=== PATIENT | female | born 1955 | race Native Hawaiian/Other Pacific Islander ===

== ENCOUNTER 2016-08-11 07:58 | Day surgery (SDC) | payer OTHER ==
[~2016-08-11] VITALS: Ht 152.4 cm; Wt 68.0 kg
== END 2016-08-11 12:37 | disposition home or self-care (01) ==
LOC: OR 07:58
PROC: 0DBK8ZZ Excision of Ascending Colon, Via Natural or Artificial Opening Endoscopic (ICD-10-PCS; principal; 2016-08-11)
DX: D12.2 Benign neoplasm of ascending colon (principal); K57.30 Diverticulosis of large intestine without perforation or abscess without bleeding; Z12.11 Encounter for screening for malignant neoplasm of colon; Z86.010 Personal history of colon polyps; R19.4 Change in bowel habit
CPT/HCPCS: J2704

== ENCOUNTER 2017-01-05 10:29 | Outpatient (CLI) | payer OTHER | END 2017-01-05 11:30 | disposition home or self-care (01) | LOC: MRI 10:29 | DX: M54.12 Radiculopathy, cervical region (principal) ==

== ENCOUNTER 2017-05-18 08:42 | Outpatient (CLI) | payer OTHER | END 2017-05-18 16:00 | disposition home or self-care (01) | LOC: NM 08:42 | DX: R11.0 Nausea (principal) ==

== ENCOUNTER 2017-10-13 09:57 | Outpatient (CLI) | payer OTHER | END 2017-10-13 23:59 | disposition home or self-care (01) | LOC: MAMMO 09:57 | DX: Z12.31 Encounter for screening mammogram for malignant neoplasm of breast (principal) ==

== ENCOUNTER 2017-11-11 10:32 | Outpatient (CLI) | payer OTHER | END 2017-11-11 19:45 | disposition home or self-care (01) | LOC: MAMMO 10:32 | DX: R92.8 Other abnormal and inconclusive findings on diagnostic imaging of breast (principal) ==

== ENCOUNTER 2018-01-05 13:02 | Outpatient (CLI) | payer OTHER | END 2018-01-05 20:33 | disposition home or self-care (01) | LOC: MRI 13:02 | DX: M54.12 Radiculopathy, cervical region (principal) ==

== ENCOUNTER 2018-06-15 09:57 | Day surgery (SDC) | payer OTHER ==
[2018-06-15 10:55] LABS: PLATELET COUNT 216 K/uL (152-353)
[2018-06-15 10:59] LABS: POTASSIUM 4.2 mmol/L (3.6-5.2)
== END 2018-06-15 17:06 | disposition home or self-care (01) ==
LOC: OR 09:57
PROVIDERS: Internal Medicine Gastroenterology
PROC: 0DB68ZZ Excision of Stomach, Via Natural or Artificial Opening Endoscopic (ICD-10-PCS; principal; 2018-06-15)
DX: K29.50 Unspecified chronic gastritis without bleeding (principal); K25.9 Gastric ulcer, unspecified as acute or chronic, without hemorrhage or perforation; K31.7 Polyp of stomach and duodenum; K21.0 Gastro-esophageal reflux disease with esophagitis; R10.11 Right upper quadrant pain; R11.0 Nausea
CPT/HCPCS: 80053; 85027; J2001; J2405; J2704

== ENCOUNTER 2018-12-19 10:48 | Outpatient (CLI) | payer OTHER | END 2018-12-19 19:57 | disposition home or self-care (01) | LOC: RAD 10:48 → MAMMO 11:00 → RAD 19:57 | DX: R93.7 Abnormal findings on diagnostic imaging of other parts of musculoskeletal system (principal); Z12.31 Encounter for screening mammogram for malignant neoplasm of breast; N95.8 Other specified menopausal and perimenopausal disorders ==

== ENCOUNTER 2019-02-08 09:00 | Outpatient (CLI) | payer OTHER | END 2019-02-08 21:51 | disposition home or self-care (01) | LOC: RAD 09:00 | DX: Z01.818 Encounter for other preprocedural examination (principal) ==

== ENCOUNTER 2019-08-23 12:55 | Outpatient (CLI) | payer OTHER | END 2019-08-23 19:50 | disposition home or self-care (01) | LOC: RAD 12:55 | DX: M25.511 Pain in right shoulder (principal) ==

== ENCOUNTER 2019-08-24 10:50 | Outpatient (CLI) | payer OTHER | END 2019-08-24 21:37 | disposition home or self-care (01) | LOC: CT 10:50 | DX: L02.211 Cutaneous abscess of abdominal wall (principal) | CPT/HCPCS: 36415; 82565; 84520; Q9963 ==

== ENCOUNTER 2019-09-26 09:05 | Outpatient (CLI) | payer OTHER | END 2019-09-26 21:22 | disposition home or self-care (01) | LOC: LABW 09:05 | DX: K76.0 Fatty (change of) liver, not elsewhere classified (principal) | CPT/HCPCS: 36415; 82172; 82247; 82977; 83010; 83883; 84460 ==

== ENCOUNTER 2019-10-25 12:50 | Day surgery (SDC) | payer OTHER ==
[2019-10-23 11:17] LABS: PLATELET COUNT 246 K/uL (152-353)
[2019-10-23 11:28] LABS: POTASSIUM 4.7 mmol/L (3.6-5.2)
[~2019-10-25] VITALS: Ht 30.5 cm; Wt 0.5 kg
== END 2019-10-25 16:05 | disposition home or self-care (01) ==
LOC: OR 12:50
PROVIDERS: Internal Medicine Gastroenterology
PROC: 0DJD8ZZ Inspection of Lower Intestinal Tract, Via Natural or Artificial Opening Endoscopic (ICD-10-PCS; principal; 2019-10-25)
DX: K57.30 Diverticulosis of large intestine without perforation or abscess without bleeding (principal); K64.8 Other hemorrhoids; Z86.010 Personal history of colon polyps
CPT/HCPCS: 80053; 85027; 93005; J2704

== ENCOUNTER 2019-12-22 10:32 | Outpatient (CLI) | payer OTHER | END 2019-12-22 20:35 | disposition home or self-care (01) | LOC: MAMMO 10:32 | DX: Z12.31 Encounter for screening mammogram for malignant neoplasm of breast (principal) ==

== ENCOUNTER 2020-04-05 11:57 | Outpatient (CLI) | payer OTHER | END 2020-04-05 19:35 | disposition home or self-care (01) | LOC: INF 11:57 | PROVIDERS: ATTEND Internal Medicine | DX: Z23 Encounter for immunization (principal) | CPT/HCPCS: 96372 ==

== ENCOUNTER 2020-05-01 10:30 | Outpatient (CLI) | payer OTHER | END 2020-05-01 21:08 | disposition home or self-care (01) | LOC: INF 10:30 | PROVIDERS: ATTEND Internal Medicine | DX: Z23 Encounter for immunization (principal) | CPT/HCPCS: 96372 ==

== ENCOUNTER 2020-08-05 10:34 | Outpatient (CLI) | payer OTHER | END 2020-08-05 21:47 | disposition home or self-care (01) | LOC: MRI 10:34 | PROVIDERS: ATTEND Registered Nurse | DX: M54.12 Radiculopathy, cervical region (principal) ==

== ENCOUNTER 2020-10-07 09:21 | Outpatient (CLI) | payer OTHER | END 2020-10-07 21:42 | disposition home or self-care (01) | LOC: CT 09:21 | PROVIDERS: ATTEND Orthopaedic Surgery Orthopaedic Surgery of the Spine | DX: M54.2 Cervicalgia (principal) ==

== ENCOUNTER 2020-12-24 12:38 | Outpatient (CLI) | payer OTHER | END 2020-12-24 20:07 | disposition home or self-care (01) | LOC: MAMMO 12:38 | PROVIDERS: ATTEND Registered Nurse | DX: Z13.820 Encounter for screening for osteoporosis (principal); Z12.31 Encounter for screening mammogram for malignant neoplasm of breast; N95.8 Other specified menopausal and perimenopausal disorders ==

== ENCOUNTER 2021-06-09 09:52 | Outpatient (CLI) | payer OTHER ==
[2021-06-09 10:32] LABS: POTASSIUM 4.8 mmol/L (3.6-5.2)
== END 2021-06-09 22:05 | disposition home or self-care (01) ==
LOC: LABW 09:52 → US 10:00 → LABW 22:05
PROVIDERS: ATTEND Internal Medicine Nephrology
DX: E11.22 Type 2 diabetes mellitus with diabetic chronic kidney disease (principal); N18.31 Chronic kidney disease, stage 3a; E78.1 Pure hyperglyceridemia; K21.9 Gastro-esophageal reflux disease without esophagitis; E23.2 Diabetes insipidus; F41.1 Generalized anxiety disorder; E78.2 Mixed hyperlipidemia; E03.8 Other specified hypothyroidism; R82.998 Other abnormal findings in urine
CPT/HCPCS: 36415; 80048; 82570; 84156; 84166; 87086; 87088

== ENCOUNTER 2021-11-11 09:47 | Outpatient (CLI) | payer OTHER | END 2021-11-11 19:29 | disposition home or self-care (01) | LOC: CT 09:47 | PROVIDERS: ATTEND Nurse Practitioner Family | DX: R10.84 Generalized abdominal pain (principal); R05.9 Cough, unspecified | CPT/HCPCS: 36415; 82565; 84520 ==

== ENCOUNTER → 2021-12-30 | Outpatient (CLI) | payer OTHER | LOC: CT 08:42 → US 09:30 | PROVIDERS: ATTEND Physician Assistant | DX: R91.1 Solitary pulmonary nodule (principal); E04.1 Nontoxic single thyroid nodule; Z12.31 Encounter for screening mammogram for malignant neoplasm of breast ==

== ENCOUNTER 2022-10-14 12:29 | Outpatient (CLI) | payer OTHER | END 2022-10-14 18:59 | disposition home or self-care (01) | LOC: MRI 12:29 | PROVIDERS: ATTEND Physician Assistant | DX: M54.2 Cervicalgia (principal); M54.59 Other low back pain; M54.6 Pain in thoracic spine ==

== ENCOUNTER 2022-10-15 09:18 | Outpatient (CLI) | payer OTHER | END 2022-10-15 19:49 | disposition home or self-care (01) | LOC: MRI 09:18 | PROVIDERS: ATTEND Physician Assistant | DX: M54.2 Cervicalgia (principal); M54.59 Other low back pain; M54.6 Pain in thoracic spine ==